=== PATIENT | male | born 1945 | race Caucasian/White ===

== ENCOUNTER 2021-05-02 00:38 | Inpatient (IN) ==
[2021-05-02] MEDS ORDERED: GLUCAGON 1 MG VIAL IM PRN (04:14)
[2021-05-02] MEDS ORDERED: DEXTROSE 50% 25 GM/50 ML VIAL IV PRN (04:14)
[2021-05-02] MEDS ORDERED: hydrALAZINE 20 MG/1 ML VIAL IV PRN (04:16)
[2021-05-02] MEDS ORDERED: ACETAMINOPHEN 325 MG TABLET PO PRN (04:16)
[2021-05-02] MEDS ORDERED: guaiFENesin/DM ER 600-30 MG TABLET PO PRN (04:16)
[2021-05-02 06:49] LABS: Basophils % 0.4 % (0.0-0.8); Eosinophils # 0.2 10*3/uL (0.0-0.87); Eosinophils % 1.8 % (0.00-10.9); Hematocrit 25.8 VOL% (42.0-52.0); Hemoglobin 8.2 GM/DL (14.0-18.0); Immature Granulocytes % 0.7 %; Immature Granulocytes Absolute 0.06 #; Lymphocytes # 1.5 10*3/uL (1.4-4.0); Lymphocytes % 18.1 % (21.2-54.2); Mean Corpuscular HGB Conc 31.8 GM/DL (32-36); Mean Corpuscular Volume 94.9 FL (87-102); Mean Platelet Volume 12.1 FL (9.6-12.0); Monocytes % 6.3 % (1.7-12.7); Neutrophils % 72.7 % (38.7-73.9); Platelet Count 191 T/CUMM (130-400); Red Blood Count 2.72 MC/CUMM (3.8-5.5); Red Cell Distribution Width 16.1 % (9.3-17.3); White Blood Count 8.5 T/CUMM (4-12)
[2021-05-02 07:37] LABS: Albumin 2.9 G/DL (3.4-5.0); Bilirubin,Total 0.4 MG/DL (0.20-1.00); Calcium 9.1 MG/DL (8.5-10.1); Osmolality,Calculated 331.4 MOS/KG (273-304); Total Protein 6.4 G/DL (6.4-8.2)
[2021-05-02 07:43] LABS: Potassium 6.1 MMOL/L (3.5-5.1)
[2021-05-02] MEDS: DOCUSATE SODIUM 100 MG CAPSULE PO SCH ×2 (09:11→21:42)
[2021-05-02] MEDS: INSULIN REGULAR 100 UNIT/ML SUBCUT SCH ×4 (09:11→21:42)
[2021-05-02] MEDS: PANTOPRAZOLE 40 MG TABLET PO SCH (09:11)
[2021-05-02] MEDS ORDERED: HEPARIN 10,000 UNIT/10 ML VIAL IV SCH (18:30)
[2021-05-02] MEDS: POLYETHYLENE GLYCOL POWDER 17 GM PACK PO SCH (21:41)
[2021-05-02] MEDS: SERTRALINE 50 MG TABLET PO SCH (21:42)
[2021-05-03 05:58] LABS: Basophils % 0.5 % (0.0-0.8); Eosinophils # 0.2 10*3/uL (0.0-0.87); Eosinophils % 2.2 % (0.00-10.9); Hematocrit 24.8 VOL% (42.0-52.0); Hemoglobin 7.9 GM/DL (14.0-18.0); Immature Granulocytes % 0.4 %; Immature Granulocytes Absolute 0.03 #; Lymphocytes # 1.3 10*3/uL (1.4-4.0); Lymphocytes % 17.3 % (21.2-54.2); Mean Corpuscular HGB Conc 31.9 GM/DL (32-36); Mean Corpuscular Volume 95.8 FL (87-102); Mean Platelet Volume 11.9 FL (9.6-12.0); Monocytes % 9.1 % (1.7-12.7); Neutrophils % 70.5 % (38.7-73.9); Platelet Count 165 T/CUMM (130-400); Red Blood Count 2.59 MC/CUMM (3.8-5.5); Red Cell Distribution Width 15.8 % (9.3-17.3); White Blood Count 7.6 T/CUMM (4-12)
[2021-05-03 06:42] LABS: Calcium 8.5 MG/DL (8.5-10.1); Osmolality,Calculated 291.7 MOS/KG (273-304); Potassium 4.1 MMOL/L (3.5-5.1)
[2021-05-03 06:44] LABS: Albumin 2.7 G/DL (3.4-5.0); Bilirubin,Total 0.4 MG/DL (0.20-1.00); Calcium 8.6 MG/DL (8.5-10.1); Osmolality,Calculated 291.7 MOS/KG (273-304); Potassium 4.3 MMOL/L (3.5-5.1); Total Protein 6.1 G/DL (6.4-8.2)
[2021-05-03] MEDS: INSULIN REGULAR 100 UNIT/ML SUBCUT SCH ×4 (08:13→21:03)
[2021-05-03] MEDS: allopurinoL 100 MG TABLET PO SCH (09:10)
[2021-05-03] MEDS: PANTOPRAZOLE 40 MG TABLET PO SCH (09:11)
[2021-05-03] MEDS: DOCUSATE SODIUM 100 MG CAPSULE PO SCH ×2 (09:11→21:02)
[2021-05-03] MEDS: ONDANSETRON 4 MG/2 ML VIAL IV PRN (21:02)
[2021-05-03] MEDS: SERTRALINE 50 MG TABLET PO SCH (21:02)
[2021-05-03] MEDS: POLYETHYLENE GLYCOL POWDER 17 GM PACK PO SCH (21:03)
[2021-05-04 04:39] LABS: Basophils % 0.5 % (0.0-0.8); Eosinophils # 0.1 10*3/uL (0.0-0.87); Eosinophils % 1.2 % (0.00-10.9); Hemoglobin 7.3 GM/DL (14.0-18.0); Immature Granulocytes % 0.6 %; Immature Granulocytes Absolute 0.04 #; Lymphocytes # 1.3 10*3/uL (1.4-4.0); Lymphocytes % 19.6 % (21.2-54.2); Mean Corpuscular HGB Conc 30.4 GM/DL (32-36); Mean Corpuscular Volume 98.4 FL (87-102); Mean Platelet Volume 12.1 FL (9.6-12.0); Monocytes % 9.5 % (1.7-12.7); Neutrophils % 68.6 % (38.7-73.9); Platelet Count 164 T/CUMM (130-400); Red Blood Count 2.44 MC/CUMM (3.8-5.5); Red Cell Distribution Width 15.7 % (9.3-17.3); White Blood Count 6.5 T/CUMM (4-12)
[2021-05-04 05:00] LABS: Calcium 8.3 MG/DL (8.5-10.1); Osmolality,Calculated 280.8 MOS/KG (273-304); Potassium 4.3 MMOL/L (3.5-5.1)
[2021-05-04] MEDS: DOCUSATE SODIUM 100 MG CAPSULE PO SCH ×2 (09:17→21:30)
[2021-05-04] MEDS: allopurinoL 100 MG TABLET PO SCH (09:18)
[2021-05-04] MEDS: PANTOPRAZOLE 40 MG TABLET PO SCH (09:18)
[2021-05-04] MEDS: ONDANSETRON 4 MG/2 ML VIAL IV PRN (09:20)
[2021-05-04] MEDS: INSULIN REGULAR 100 UNIT/ML SUBCUT SCH ×4 (09:21→21:31)
[2021-05-04] MEDS: SERTRALINE 50 MG TABLET PO SCH (21:30)
[2021-05-04] MEDS: POLYETHYLENE GLYCOL POWDER 17 GM PACK PO SCH (21:32)
[2021-05-05 05:12] LABS: Basophils % 0.3 % (0.0-0.8); Eosinophils # 0.2 10*3/uL (0.0-0.87); Eosinophils % 2.2 % (0.00-10.9); Hematocrit 24.3 VOL% (42.0-52.0); Hemoglobin 7.4 GM/DL (14.0-18.0); Immature Granulocytes % 0.5 %; Immature Granulocytes Absolute 0.04 #; Lymphocytes # 1.8 10*3/uL (1.4-4.0); Lymphocytes % 24.2 % (21.2-54.2); Mean Corpuscular HGB Conc 30.5 GM/DL (32-36); Mean Platelet Volume 12.4 FL (9.6-12.0); Monocytes % 9.9 % (1.7-12.7); Neutrophils % 62.9 % (38.7-73.9); Platelet Count 175 T/CUMM (130-400); Red Blood Count 2.48 MC/CUMM (3.8-5.5); Red Cell Distribution Width 15.6 % (9.3-17.3); White Blood Count 7.3 T/CUMM (4-12)
[2021-05-05 05:43] LABS: Calcium 8.2 MG/DL (8.5-10.1); Osmolality,Calculated 281.1 MOS/KG (273-304); Potassium 4.6 MMOL/L (3.5-5.1)
[2021-05-05] MEDS: INSULIN REGULAR 100 UNIT/ML SUBCUT SCH ×4 (08:15→21:19)
[2021-05-05] MEDS: DOCUSATE SODIUM 100 MG CAPSULE PO SCH ×2 (13:11→21:18)
[2021-05-05] MEDS: PANTOPRAZOLE 40 MG TABLET PO SCH (13:15)
[2021-05-05] MEDS: allopurinoL 100 MG TABLET PO SCH (13:15)
[2021-05-05] MEDS: POLYETHYLENE GLYCOL POWDER 17 GM PACK PO SCH (21:18)
[2021-05-05] MEDS: SERTRALINE 50 MG TABLET PO SCH (21:18)
[2021-05-05] MEDS: oxyCODONE ER 10 MG TABLET PO SCH (21:19)
[2021-05-06 07:12] LABS: Basophils % 0.6 % (0.0-0.8); Eosinophils # 0.2 10*3/uL (0.0-0.87); Eosinophils % 2.9 % (0.00-10.9); Hemoglobin 7.8 GM/DL (14.0-18.0); Immature Granulocytes % 0.5 %; Immature Granulocytes Absolute 0.03 #; Lymphocytes # 1.7 10*3/uL (1.4-4.0); Lymphocytes % 26.1 % (21.2-54.2); Mean Corpuscular HGB Conc 31.2 GM/DL (32-36); Mean Corpuscular Volume 96.5 FL (87-102); Mean Platelet Volume 13.2 FL (9.6-12.0); Monocytes % 9.4 % (1.7-12.7); Neutrophils % 60.5 % (38.7-73.9); Platelet Count 161 T/CUMM (130-400); Red Blood Count 2.59 MC/CUMM (3.8-5.5); Red Cell Distribution Width 15.3 % (9.3-17.3); White Blood Count 6.5 T/CUMM (4-12)
[2021-05-06 07:20] LABS: Calcium 8.3 MG/DL (8.5-10.1); Osmolality,Calculated 281.8 MOS/KG (273-304); Potassium 4.5 MMOL/L (3.5-5.1)
[2021-05-06] MEDS: INSULIN REGULAR 100 UNIT/ML SUBCUT SCH ×3 (08:53→17:28)
[2021-05-06 12:23] VITALS: BP 168/59
[2021-05-06] MEDS: POLYETHYLENE GLYCOL POWDER 17 GM PACK PO SCH (12:31)
[2021-05-06] MEDS: PANTOPRAZOLE 40 MG TABLET PO SCH (12:31)
[2021-05-06] MEDS: allopurinoL 100 MG TABLET PO SCH (12:31)
[2021-05-06] MEDS: DOCUSATE SODIUM 100 MG CAPSULE PO SCH (12:31)
[2021-05-06] MEDS: oxyCODONE ER 10 MG TABLET PO SCH (12:32)
[2021-05-06] MEDS ORDERED: hydrALAZINE 10 MG TABLET PO SCH (21:00)
== END 2021-05-06 18:20 | DRG 640 ==
LOC: N.TELES → SUATTDRO 03:22
PROVIDERS: ADMIT Internal Medicine; ATTEND Hospitalist